=== PATIENT | male | born 1975 | race Caucasian/White ===

== ENCOUNTER 2017-02-15 20:49 | Emergency (ER) | payer OTHER, MEDICARE ==
--- NOTE | 2017-02-15 21:19 | EDM.PDOC ---
ED HPI GENERAL MEDICAL PROBLEM - General Stated Complaint: possible pneumonia Time Seen by Provider: 02/15/17 21:00 Source of Information: Reports: Patient History Limitations: Reports: No Limitations - History of Present Illness INITIAL COMMENTS - FREE TEXT/NARRATIVE: According to patient, he has been having hacky cough for about 2 wks. He feels ticklish in his throat and starts coughing. Cough is intermittent and present all day. No chills. He claims cough has got worse in the past 2 days. Claims he feels feverish. No body aches. No wheezing or SOB. No hoarseness of voice. No chest pain. Duration: Week(s): (2) Severity: Moderate Improves with: Reports: None Worsens with: Reports: None Associated Symptoms: Reports: Cough. Denies: Confusion, Chest Pain, Diaphoresis , Fever/Chills, Headaches, Nausea/Vomiting, Rash, Seizure, Shortness of Breath, Syncope, Weakness - Related Data Allergies Allergy/AdvReac Type Severity Reaction Status Date / Time cyclobenzaprine HCl Allergy Cardiac Verified 11/26/15 12:37 [From Flexeril] Arrest divalproex sodium Allergy Cannot Verified 11/26/15 12:37 [From Depakote] Remember sertraline Allergy Cardiac Verified 11/26/15 12:37 Arrest trazodone Allergy Other Verified 11/26/15 12:37 Home Meds: Home Meds Lisinopril 5 mg PO DAILY 11/26/15 [History] Past Medical History Cardiovascular History: Reports: Hypertension, Prior Cardiac Arrest Respiratory History: Reports: Asthma, Other (See Below) Other Respiratory History: 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 Genitourinary History: Reports: Other (See Below) Other Genitourinary History: testicular cancer Musculoskeletal History: Reports: Back Pain, Chronic, Neck Pain, Chronic Neurological History: Reports: Brain Injury, Migraines Psychiatric History: Reports: Anxiety, Depression, PTSD Oncologic (Cancer) History: Reports: Other (See Below) Other Oncologic History: Testicular Dermatologic History: Reports: Other (See Below) Other Dermatologic History: Rash shoulders after being in [place] - Infectious Disease History Infectious Disease History: Reports: Chicken Pox - Past Surgical History Male Surgical History: Reports: Other (See Below) Neurological Surgical History: Reports: C-Spine, Spinal Fusion Musculoskeletal Surgical History: Reports: Other (See Below) Social & Family History - Family History Family Medical History: Noncontributory - Tobacco Use Smoking Status *Q: Never Smoker Second Hand Smoke Exposure: No - Caffeine Use Caffeine Use: Reports: Coffee - Alcohol Use Days Per Week of Alcohol Use: 3 Number of Drinks Per Day: 3 Total Drinks Per Week: 9 - Recreational Drug Use Recreational Drug Use: No ED ROS GENERAL - Review of Systems Review Of Systems: See Below Constitutional: Denies: Fever, Chills, Fatigue, Night Sweats HEENT: Denies: Ear Discharge, Ear Pain, Rhinitis, Sinus Problem, Throat Pain, Throat Swelling Respiratory: Reports: Cough, Sputum. Denies: Shortness of Breath, Wheezing, Pleuritic Chest Pain Cardiovascular: Denies: Chest Pain, Lightheadedness Endocrine: Denies: Fatigue GI/Abdominal: Denies: Abdominal Pain, Nausea, Vomiting : Denies: Dysuria, Flank Pain Musculoskeletal: Denies: Joint Pain, Joint Swelling Skin: Denies: Pruritis, Rash ED EXAM, GENERAL - Physical Exam Exam: See Below Exam Limited By: No Limitations General Appearance: Alert, WD/WN, No Apparent Distress Eye Exam: Bilateral Eye: EOMI, PERRL Ears: Normal External Exam, Normal Canal, Hearing Grossly Normal, Normal TMs Ear Exam: Bilateral Ear: Auricle Normal, Canal Normal, TM normal Nose: Normal Inspection, Normal Mucosa, No Blood Throat/Mouth: Normal Inspection, Normal Lips, Normal Teeth, Normal Gums, Normal Oropharynx, Normal Voice, No Airway Compromise Head: Atraumatic, Normocephalic Neck: Normal Inspection, Supple, Non-Tender, Full Range of Motion Respiratory/Chest: No Respiratory Distress, Lungs Clear, Normal Breath Sounds, No Accessory Muscle Use, Chest Non-Tender Cardiovascular: Normal Peripheral Pulses, Regular Rate, Rhythm, No Edema, No Gallop, No JVD, No Murmur, No Rub GI/Abdominal: Normal Bowel Sounds, Soft, Non-Tender, No Organomegaly, No Distention, No Abnormal Bruit, No Mass Extremities: Normal Inspection, Normal Range of Motion, Non-Tender, Normal Capillary Refill, No Pedal Edema Skin Exam: Warm, Intact Course - Vital Signs Text/Narrative:: Pt's clinical exam is normal. He does have hacky cough for 2 wks. His SPO2 on room air is 98%. No obvious crepitus or crackles heard. His CbC appears normal. Considering that he has on going cough for 2 wks I have empirically covered him with Augmentin for bronchitis. Advised steam inhalations 2-3 times daily and deep breathing exercises. Followup in clinic for recheck next week. - Orders/Labs/Meds Labs: Laboratory Tests 02/15/17 Range/Units 21:12 WBC 11.0 (4.0-11.0) K/uL RBC 4.50 (4.50-6.50) M/uL Hgb 14.2 (13.0-18.0) g/dL Hct 40.4 (40.0-54.0) % MCV 90 (76-96) fL MCH 31.6 (27.0-32.0) pg MCHC 35.1 H (31.0-35.0) g/dL RDW 11.6 (11.0-16.0) % Plt Count 307 (150-400) K/uL MPV 10.3 H (6.0-10.0) fL Neut % (Auto) 67.4 (45.0-70.0) % Lymph % (Auto) 22.7 (20.0-40.0) % Bledsoe % (Auto) 8.1 (3.0-10.0) % Eos % (Auto) 1.3 (1.0-5.0) % Baso % (Auto) 0.5 (0.0-0.5) % Neut # (Auto) 7.42 (2.00-7.50) K/uL Lymph # (Auto) 2.50 (1.50-4.00) K/uL Bledsoe # (Auto) 0.89 H (0.20-0.80) K/uL Eos # (Auto) 0.14 (0.04-0.40) K/uL Baso # (Auto) 0.05 (0.02-0.10) K/uL Departure - Departure Time of Disposition: 21:30 Disposition: Home, Self-Care 01 Condition: Good Clinical Impression: Acute bacterial bronchitis - Discharge Information Additional Instructions: Pt's clinical exam is normal. He does have hacky cough for 2 wks. His SPO2 on room air is 98%. No obvious crepitus or crackles heard. His CbC and white count appears normal. Considering that he has on going cough for 2 wks I have empirically covered him with Augmentin for bronchitis. Advised steam inhalations 2-3 times daily and deep breathing exercises. Followup in clinic for recheck next week. - Problem List & Annotations (1) Acute bacterial bronchitis SNOMED Code(s): 079739056 Code(s): J20.8 - ACUTE BRONCHITIS DUE TO OTHER SPECIFIED ORGANISMS; B96.89 - OTH BACTERIAL AGENTS THE CAUSE OF DISEASES CLASSD [id number] Status: Acute - Problem List Review Problem List Initiated/Reviewed/Updated: Yes - Assessment/Plan Assessment:: Bronchitis Plan: Pt's clinical exam is normal. He does have hacky cough for 2 wks. His SPO2 on room air is 98%. No obvious crepitus or crackles heard. His CbC appears normal. Considering that he has on going cough for 2 wks I have empirically covered him with Augmentin for bronchitis. Advised steam inhalations 2-3 times daily and deep breathing exercises. Followup in clinic for recheck next week.
[2017-02-15] MEDS ORDERED: Benzonatate 100 MG Cap ONE (21:20)
[2017-02-15] MEDS ORDERED: Amoxicillin/Clavulanate K 875-125 MG Tab ONE (21:20)
== END 2017-02-15 21:35 | disposition home or self-care (01) ==
LOC: LB.ED 20:49
DX: J20.8 Acute bronchitis due to other specified organisms (principal); I10 Essential (primary) hypertension; Z88.8 Allergy status to other drugs, medicaments and biological substances; Z79.899 Other long term (current) drug therapy
CPT/HCPCS: 36415; 85025; 99283; A9270

== ENCOUNTER 2018-04-19 09:11 | Emergency (ER) | payer OTHER, MEDICARE ==
[2018-04-19] MEDS ORDERED: Ketorolac 60 MG/2 ML SDV IM ONE (09:39)
--- NOTE | 2018-04-19 12:05 | CR ---
PA CHEST AND LEFT RIBS, 04/19/18 The heart size is normal. The lungs are clear. No pneumothorax. No pleural effusions. No displaced rib fractures. [id number] [facility]
--- NOTE | 2018-04-19 16:29 | EDM.PDOC ---
ED HPI GENERAL MEDICAL PROBLEM - General Chief Complaint: General Stated Complaint: L) SIDE RIB PAIN Time Seen by Provider: 04/19/18 09:15 Source of Information: Reports: Patient History Limitations: Reports: No Limitations - History of Present Illness INITIAL COMMENTS - FREE TEXT/NARRATIVE: According to patient he has sudden onset of of pain in his left lower chest since friday. Pt claims it happened on Friday when he had a sneezing spell. [place] a sharp pain in the left lower chest and the pain radiates form the back of the chest all the way to midline anteriorly. Hurts to roll in the bed and to take deep breath. Rates pain at 6/10 while resting and 10/10 when he coughs or sneezes. Pt claims he injured his left chest wall in [place] war and since then has had several episodes of similar pain. But, this has been the worst. No cough, wheezing or shortness of breath. Onset Date: 04/15/18 Duration: Getting Worse, Intermittent Location: Reports: Chest Quality: Reports: Ache Severity: Moderate Associated Symptoms: Denies: Confusion, Chest Pain, Cough, Diaphoresis, Fever/ Chills, Headaches, Nausea/Vomiting, Rash, Seizure, Shortness of Breath, Syncope , Weakness - Related Data Allergies Allergy/AdvReac Type Severity Reaction Status Date / Time cyclobenzaprine HCl Allergy Cardiac Verified 11/26/15 12:37 [From Flexeril] Arrest divalproex sodium Allergy Cannot Verified 11/26/15 12:37 [From Depakote] Remember sertraline Allergy Cardiac Verified 11/26/15 12:37 Arrest trazodone Allergy Other Verified 11/26/15 12:37 Home Meds: Home Meds Lisinopril 5 mg PO DAILY 11/26/15 [History] Past Medical History Cardiovascular History: Reports: Hypertension, Prior Cardiac Arrest Respiratory History: Reports: Asthma, Other (See Below) Other Respiratory History: 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 Genitourinary History: Reports: Other (See Below) Other Genitourinary History: testicular cancer Musculoskeletal History: Reports: Back Pain, Chronic, Neck Pain, Chronic Neurological History: Reports: Brain Injury, Migraines Psychiatric History: Reports: Anxiety, Depression, PTSD Oncologic (Cancer) History: Reports: Other (See Below) Other Oncologic History: Testicular Dermatologic History: Reports: Other (See Below) Other Dermatologic History: Rash shoulders after being in [place] - Infectious Disease History Infectious Disease History: Reports: Chicken Pox - Past Surgical History Male Surgical History: Reports: Other (See Below) Neurological Surgical History: Reports: C-Spine, Spinal Fusion Musculoskeletal Surgical History: Reports: Other (See Below) Social & Family History - Family History Family Medical History: Noncontributory - Caffeine Use Caffeine Use: Reports: Coffee ED ROS GENERAL - Review of Systems Review Of Systems: See Below Constitutional: Denies: Fever, Chills HEENT: Denies: Rhinitis, Throat Pain, Throat Swelling Respiratory: Reports: Pleuritic Chest Pain. Denies: Shortness of Breath, Cough , Sputum Cardiovascular: Denies: Chest Pain, Lightheadedness GI/Abdominal: Denies: Abdominal Pain, Nausea, Vomiting : Denies: Flank Pain, Frequency Musculoskeletal: Denies: Joint Pain, Joint Swelling Skin: Denies: Bruising, Pruritis, Rash ED EXAM, GENERAL - Physical Exam Exam: See Below Exam Limited By: No Limitations General Appearance: Alert, WD/WN, No Apparent Distress Eye Exam: Bilateral Eye: EOMI, PERRL Ears: Normal External Exam, Normal Canal, Hearing Grossly Normal, Normal TMs Ear Exam: Bilateral Ear: Auricle Normal, Canal Normal, TM normal Nose: Normal Inspection, Normal Mucosa, No Blood Throat/Mouth: Normal Inspection, Normal Lips, Normal Teeth, Normal Gums, Normal Oropharynx, Normal Voice, No Airway Compromise Head: Atraumatic, Normocephalic Neck: Normal Inspection, Supple, Non-Tender, Full Range of Motion Respiratory/Chest: No Respiratory Distress, Lungs Clear, Normal Breath Sounds, No Accessory Muscle Use, Other (There is no swelling, bruising or deformity of the chest wall.Pain iwth deep breathing. Tender over the left lower chest all the way from left lower costorvertebral joint to costochondral joints.) Cardiovascular: Normal Peripheral Pulses, Regular Rate, Rhythm, No Edema, No Gallop, No JVD, No Murmur, No Rub Course - Vital Signs Text/Narrative:: Pt's left rib series is negative for rib fracture. Pt reassured that he has developed intercostal muscle spasms. He did receive toradol 60mg IM in the emergency room. Advised Motrin 800mg 3 times daily and intermittent heat to the chest wall. Deep breathing exercises. Pain should gradually improve. - Orders/Labs/Meds Meds: Medications Discontinued Medications Generic Name Dose Route Start Last Admin Trade Name Nicholas PRN Reason Stop Dose Admin Ketorolac Tromethamine 60 mg 04/19/18 09:39 04/19/18 09:40 Toradol IM 04/19/18 09:40 60 mg ONETIME ONE Administration Departure - Departure Time of Disposition: 10:00 Disposition: Home, Self-Care 01 Condition: Fair Clinical Impression: Costochondral chest pain - Discharge Information *PRESCRIPTION DRUG MONITORING PROGRAM REVIEWED*: Not Applicable *COPY OF PRESCRIPTION DRUG MONITORING REPORT IN PATIENT ELVIA: Not Applicable Instructions: Costochondritis, [id number] Referrals: PCP,None [Primary Care Provider] - Forms: ED Department Discharge Additional Instructions: Take Motrin 800mg 3 times a day as needed for pain. Warm packs for 10-15 minutes intermitent to site. Return to clinic or ER if symptoms increase or dont improve. - Problem List & Annotations (1) Costochondral chest pain SNOMED Code(s): 436790515, 669834864 Code(s): R07.1 - CHEST PAIN ON BREATHING Status: Acute - Problem List Review Problem List Initiated/Reviewed/Updated: Yes - Assessment/Plan Assessment:: Left costochondral pain Plan: Pt's left rib series is negative for rib fracture. Pt reassured that he has developed intercostal muscle spasms. He did receive toradol 60mg IM in the emergency room. Advised Motrin 800mg 3 times daily and intermittent heat to the chest wall. Deep breathing exercises. Pain should gradually improve. Followup in clinic if symptoms worsen.
== END 2018-04-19 10:18 | disposition home or self-care (01) ==
LOC: LB.ED 09:11
DX: R07.1 Chest pain on breathing (principal); Z88.8 Allergy status to other drugs, medicaments and biological substances; Z88.5 Allergy status to narcotic agent; Z79.899 Other long term (current) drug therapy
CPT/HCPCS: 71100-LT; 96372; 99283-25; J1885

== ENCOUNTER 2019-03-30 12:17 | Emergency (ER) | payer OTHER, MEDICARE ==
[2019-03-30 12:32] VITALS: BP 131/85; PULSE 95
[2019-03-30] MEDS ORDERED: Albuterol/Ipratropium 3.0-0.5 MG/3 ML Neb Soln NEB PRN (13:01)
[2019-03-30] MEDS ORDERED: Albuterol/Ipratropium 3.0-0.5 MG/3 ML Neb Soln ONE (13:25)
--- NOTE | 2019-03-30 14:07 | CR ---
DATE OF SERVICE: 03/30/19 CLINICAL DATA: Cough - pulm fibrosis hx. PA AND LATERAL CHEST: Comparison is made to a prior exam dated 04/19/18. The heart size is normal. The lungs are clear. No pneumothorax. No pleural effusions. No evidence of acute intrathoracic disease. [id number] [facility]
--- NOTE | 2019-03-30 16:55 | ER ---
REASON FOR EMERGENCY ROOM VISIT: Cough. HISTORY: This is a 44-year-old comes in with a 5-day history of cold-like symptoms with a cough over the past couple of days. He has had some wheezing. He has also had increased diaphoresis with possible fever and chills. He has not had any GI symptoms and he denies any headache. The patient's history is significant. 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 This caused him to have pulmonary fibrosis making him prone to episodes of pneumonia and bronchitis, for which he has been seen in the past. PAST MEDICAL HISTORY: 1. Testicular carcinoma at age 23. 2. History of traumatic brain injury in 2013. 3. History of cardiac arrest. 4. Pulmonary fibrosis. 5. PTSD ([place] war ). ALLERGIES: FLEXERIL, SSRI MEDICATIONS INCLUDING SERTRALINE, TRAZODONE, AND DEPAKOTE. MEDICATIONS: Includes lisinopril. REVIEW OF SYSTEMS: Pertinent positives and negatives as listed in the HPI. PHYSICAL EXAMINATION: GENERAL: He is a pleasant man, in no acute distress. VITAL SIGNS: He is afebrile, blood pressure 131/85, heart rate 95, O2 sats 95%, respiratory rate 18. HEENT: Head is normocephalic. TMs are normal. Oropharynx is normal. No conjunctivitis is noted. NECK: Supple. No adenopathy. CHEST: He has scattered wheezes, mainly inspiratory which clears somewhat after coughing. He has a few scattered rhonchi as well. There is reasonably good air exchange nonetheless. CARDIAC: Regular rate without murmur. ABDOMEN: Soft, nontender, nondistended. No hepatosplenomegaly. SKIN: No rashes. LABORATORY DATA: His chest x-ray shows what I felt was a small early infiltrate in the left mid lung field, but this is very subtle. His CBC was within normal limits and his influenza A and B by nasal swab was negative. He does not have any leukocytosis. IMPRESSION: Community-acquired pneumonia clinically. PLAN: We will put him on Augmentin 875 mg one p.o. b.i.d. x10 days. I also gave him a prescription for Tessalon Perles 200 mg, dispensed #20, 1 q.8 hours p.r.n. cough. Other [id number] medications and supportive measures were discussed. He understands that should he not feel significant improvement by the end of the week that he should return for a recheck. All questions were answered. They understand and agreed. ANDRADE /[id number]
== END 2019-03-30 14:03 | disposition home or self-care (01) ==
LOC: LB.ED 12:17
DX: J18.9 Pneumonia, unspecified organism (principal); Z88.8 Allergy status to other drugs, medicaments and biological substances
CPT/HCPCS: 36415; 71046; 85025; 87804; 87804-59; 99283; 99285-25; J7620-GY

== ENCOUNTER 2020-04-07 09:45 | Emergency (ER) | payer MEDICARE, OTHER ==
[2020-04-07 10:05] VITALS: BP 143/103; PULSE 76
--- NOTE | 2020-04-07 10:14 | EDM.PDOC ---
ED HPI GENERAL MEDICAL PROBLEM - General Chief Complaint: ENT Problem Stated Complaint: EAR PAIN Time Seen by Provider: 04/07/20 10:00 Source of Information: Reports: Patient History Limitations: Reports: No Limitations - History of Present Illness INITIAL COMMENTS - FREE TEXT/NARRATIVE: b/l ears pain for 3-7 days. h/o recurrent ears infections in the past. h/o swimmer's ears. No fever or chills. Reports that he is prone to develop a lot of wax inside his ears and they get plugged up occasionally. Have tried to chlorhexidine ear wash solution before but no help. No changes in hearing. Mild nausea but no emesis. Has made an appointment to see his PCP next week - but decided to come to the ER for evaluation - Related Data Allergies Allergy/AdvReac Type Severity Reaction Status Date / Time cyclobenzaprine HCl Allergy Cardiac Verified 04/07/20 09:59 [From Flexeril] Arrest divalproex sodium Allergy Cannot Verified 04/07/20 09:59 [From Depakote] Remember sertraline Allergy Cardiac Verified 04/07/20 09:59 Arrest trazodone Allergy Other Verified 04/07/20 09:59 Past Medical History Cardiovascular History: Reports: Hypertension, Prior Cardiac Arrest Respiratory History: Reports: Asthma, Other (See Below) Other Respiratory History: 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 Genitourinary History: Reports: Other (See Below) Other Genitourinary History: testicular cancer Musculoskeletal History: Reports: Back Pain, Chronic, Neck Pain, Chronic Neurological History: Reports: Brain Injury, Migraines Psychiatric History: Reports: Anxiety, Depression, PTSD Oncologic (Cancer) History: Reports: Other (See Below) Other Oncologic History: Testicular Dermatologic History: Reports: Other (See Below) Other Dermatologic History: Rash shoulders after being in [place] - Infectious Disease History Infectious Disease History: Reports: Chicken Pox - Past Surgical History Male Surgical History: Reports: Other (See Below) Other Male Surgeries/Procedures: testical removal Neurological Surgical History: Reports: C-Spine, Spinal Fusion Musculoskeletal Surgical History: Reports: Other (See Below) Other Musculoskeletal Surgeries/Procedures:: C5-C6 fused Social & Family History - Family History Family Medical History: No Pertinent Family History - Caffeine Use Caffeine Use: Reports: Coffee ED ROS ENT - Review of Systems Review Of Systems: See Below Constitutional: Reports: No Symptoms HEENT: Reports: Ear Pain Respiratory: Reports: No Symptoms Cardiovascular: Reports: No Symptoms GI/Abdominal: Reports: No Symptoms Musculoskeletal: Reports: No Symptoms Skin: Reports: No Symptoms Neurological: Reports: No Symptoms Psychiatric: Reports: No Symptoms ED EXAM, ENT - Physical Exam Exam: See Below Exam Limited By: No Limitations General Appearance: Alert, No Apparent Distress Ears: Normal External Exam, Cerumen Impaction (mild discomfort upon examining the ear with an otoscope. cerumenosis. Unable to visualize), Other Head: Atraumatic Neck: Normal Inspection, Full Range of Motion Respiratory/Chest: No Respiratory Distress, Lungs Clear GI/Abdominal: Normal Bowel Sounds Neurological: Alert, Oriented, No Motor/Sensory Deficits Psychiatric: Normal Affect Course - Vital Signs Last Recorded V/S: Last Vital Signs Temp 36.3 C 04/07/20 10:03 Pulse 76 04/07/20 10:03 Resp 16 04/07/20 10:03 BP 143/103 H 04/07/20 10:03 Pulse Ox 97 04/07/20 10:03 - Re-Assessments/Exams Free Text/Narrative Re-Assessment/Exam: patient reports that he responded well to ciprofloxacin last time he had the same thing. Departure - Departure Time of Disposition: 10:00 Disposition: Home, Self-Care 01 Condition: Good Clinical Impression: Otitis externa - Discharge Information *PRESCRIPTION DRUG MONITORING PROGRAM REVIEWED*: Not Applicable *COPY OF PRESCRIPTION DRUG MONITORING REPORT IN PATIENT ELVIA: Not Applicable Instructions: Ciprofloxacin tablets Referrals: Sid Sanchez MD [Primary Care Provider] - Forms: ED Department Discharge Care Plan Goals: Can use tylenol and alternate with ibuprofen as needed as directed by physician. Take cipro 2 x day x 5 days as directed. zofran ODT 4 mg every 6 to 8 hrs as directed. Keep appointment with Dr. Sanchez. Continue using OTC drops if you want. Sepsis Event Note (ED) - Focused Exam Vital Signs: Vital Signs Temp Pulse Resp BP Pulse Ox 04/07/20 10:03 36.3 C 76 16 143/103 H 97 - Problem List & Annotations (1) Otitis externa SNOMED Code(s): 0331394 Code(s): H60.90 - UNSPECIFIED OTITIS EXTERNA, UNSPECIFIED EAR Status: Acute Priority: Medium Current Visit: Yes Qualifiers: Otitis externa type: swimmer's ear Chronicity: chronic Laterality: bilateral Qualified Code(s): H60.333 - Swimmer's ear, bilateral - Problem List Review Problem List Initiated/Reviewed/Updated: Yes - Assessment/Plan Plan: Cipro PO 500mg BID for 5 days Zofran for nausea f/u w PCP in 3-7 days Tylenol for pain as needed
== END 2020-04-07 10:15 | disposition home or self-care (01) ==
LOC: LB.ED 09:45
DX: H60.93 Unspecified otitis externa, bilateral (principal); I10 Essential (primary) hypertension; H61.20 Impacted cerumen, unspecified ear; J45.909 Unspecified asthma, uncomplicated; Z88.8 Allergy status to other drugs, medicaments and biological substances; Z88.5 Allergy status to narcotic agent
CPT/HCPCS: 99282; 99283

== ENCOUNTER 2020-08-30 12:31 | Observation (INO) | payer OTHER ==
--- NOTE | 2020-08-30 12:38 | EDM.PDOC ---
ED HPI GENERAL MEDICAL PROBLEM - General Chief Complaint: Back Pain or Injury Stated Complaint: BACK PAIN Time Seen by Provider: 08/30/20 12:38 Source of Information: Reports: Patient History Limitations: Reports: No Limitations - History of Present Illness INITIAL COMMENTS - FREE TEXT/NARRATIVE: patient presented to the ER with a c/o acute low back pain. h/o chronic neck and back pain, s/o fusion of cervical spine. Reports that he was trying to carry something not that have and while twisting, he developed a severe low back pain, mainly to the left - unable to put weight on the affected side. No numbness or tingling. Required helped to get up and get to the ER. pain 9 out of 10. h.o anxiety. Onset: Sudden Duration: Minutes: (15) Location: Reports: Back Quality: Reports: Sharp Severity: Moderate Improves with: Reports: Immobilization Worsens with: Reports: Movement Left Lower Back Pain Score (Numeric/FACES): 9 - Related Data Allergies Allergy/AdvReac Type Severity Reaction Status Date / Time cyclobenzaprine HCl Allergy Cardiac Verified 08/30/20 13:05 [From Flexeril] Arrest divalproex sodium Allergy Cannot Verified 08/30/20 13:05 [From Depakote] Remember sertraline Allergy Cardiac Verified 08/30/20 13:05 Arrest trazodone Allergy Other Verified 08/30/20 13:05 Home Meds: Home Meds diazePAM [Valium] 5 mg PO ASDIRECTED 08/30/20 [History] hydrOXYzine HCL [Atarax] 25 mg PO ASDIRECTED 08/30/20 [History] methocarbamoL [Methocarbamol] 100 mg IJ ASDIRECTED 08/30/20 [History] Past Medical History HEENT History: Reports: Other (See Below) Other HEENT History: hx ear infections in the past from swimming etc. 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 Genitourinary History: Reports: Other (See Below) Other Genitourinary History: testicular cancer Musculoskeletal History: Reports: Back Pain, Chronic, Neck Pain, Chronic Neurological History: Reports: Brain Injury, Migraines Psychiatric History: Reports: Anxiety, Depression, PTSD Oncologic (Cancer) History: Reports: Other (See Below) Other Oncologic History: Testicular Dermatologic History: Reports: Other (See Below) Other Dermatologic History: Rash shoulders after being in [place] - Infectious Disease History Infectious Disease History: Reports: Chicken Pox - Past Surgical History Male Surgical History: Reports: Other (See Below) Other Male Surgeries/Procedures: testical removal Neurological Surgical History: Reports: C-Spine, Spinal Fusion Musculoskeletal Surgical History: Reports: Other (See Below) Other Musculoskeletal Surgeries/Procedures:: C5-C6 fused Social & Family History - Family History Family Medical History: No Pertinent Family History - Caffeine Use Caffeine Use: Reports: Coffee ED ROS GENERAL - Review of Systems Review Of Systems: See Below Constitutional: Reports: No Symptoms HEENT: Reports: No Symptoms Respiratory: Reports: No Symptoms Cardiovascular: Reports: No Symptoms GI/Abdominal: Reports: No Symptoms Musculoskeletal: Reports: Back Pain Skin: Reports: No Symptoms Neurological: Reports: No Symptoms ED EXAM,LOWER BACK PAIN/INJURY - Physical Exam Exam: See Below Exam Limited By: No Limitations General Appearance: Alert, WD/WN, No Apparent Distress Eye Exam: Bilateral Eye: EOMI Head: Atraumatic, Normocephalic Respiratory/Chest: No Respiratory Distress, Lungs Clear Cardiovascular: Normal Peripheral Pulses, Regular Rate, Rhythm Back Exam: Decreased Range of Motion, Muscle Spasm Neurological: Alert, Normal Mood/Affect, Abnormal Gait Course - Vital Signs Last Recorded V/S: Last Vital Signs Temp 36.1 C 08/30/20 12:35 Pulse 61 08/30/20 12:35 Resp 18 08/30/20 12:35 BP 139/91 H 08/30/20 12:35 Pulse Ox 98 08/30/20 12:35 - Orders/Labs/Meds Orders: Active Orders 24 hr Category Date Time Status Sodium Chloride 0.9% [Saline Flush] Med 08/30/20 16:42 Active 10 ml FLUSH ASDIRECTED PRN Saline Lock Insert [OM.PC] Routine Oth 08/30/20 16:42 Ordered Medication Orders Sodium Chloride (Sodium Chloride 0.9% 10 Ml Syringe) 10 ml FLUSH ASDIRECTED PRN PRN Reason: Keep Vein Open Meds: Medications Generic Name Dose Route Start Last Admin Trade Name Freq PRN Reason Stop Dose Admin Sodium Chloride 10 ml 08/30/20 16:42 Sodium Chloride 0.9% 10 Ml Syringe FLUSH ASDIRECTED PRN Keep Vein Open Discontinued Medications Generic Name Dose Route Start Last Admin Trade Name Nicholas PRN Reason Stop Dose Admin Diazepam 5 mg 08/30/20 15:49 Diazepam 5 Mg/Ml Mdv IM 08/30/20 15:50 ONETIME ONE Diazepam 5 mg 08/30/20 15:51 Diazepam 5 Mg/Ml Mdv IM 08/30/20 15:52 ONETIME ONE Diazepam Confirm 08/30/20 16:03 Diazepam 5 Mg/Ml Mdv Administered 08/30/20 16:04 Dose 5 mg .ROUTE .STK-MED ONE Fentanyl 50 mcg 08/30/20 14:20 08/30/20 14:28 Fentanyl 100 Mcg/2 Ml Sdv IM 08/30/20 14:21 50 mcg ONETIME ONE Administration Fentanyl Confirm 08/30/20 14:32 08/30/20 14:31 Fentanyl 100 Mcg/2 Ml Sdv Administered 08/30/20 14:33 Not Given Dose 100 mcg .ROUTE .STK-MED ONE Fentanyl 50 mcg 08/30/20 16:42 Fentanyl 100 Mcg/2 Ml Sdv IVPUSH 08/30/20 16:43 NOW STA Ketorolac Tromethamine 60 mg 08/30/20 12:48 08/30/20 12:58 Ketorolac 60 Mg/2 Ml Sdv IM 08/30/20 12:49 60 mg ONETIME ONE Administration Ketorolac Tromethamine Confirm 08/30/20 13:03 08/30/20 13:20 Ketorolac 60 Mg/2 Ml Sdv Administered 08/30/20 13:04 Not Given Dose 60 mg .ROUTE .STK-MED ONE Ketorolac Tromethamine Confirm 08/30/20 13:04 08/30/20 13:21 Ketorolac 60 Mg/2 Ml Sdv Administered 08/30/20 13:05 Not Given Dose 60 mg .ROUTE .STK-MED ONE Methylprednisolone Sodium Succinate 125 mg 08/30/20 12:48 08/30/20 13:00 Methylprednisolone Sodium Succinate 125 Mg/2 Ml Sdv IM 08/30/20 12:49 125 mg ONETIME ONE Administration Methylprednisolone Sodium Succinate Confirm 08/30/20 13:03 08/30/20 13:20 Methylprednisolone Sodium Succinate 125 Mg/2 Ml Sdv Administered 08/30/20 13:04 Not Given Dose 125 mg .ROUTE .STK-MED ONE Ondansetron HCl 4 mg 08/30/20 13:15 08/30/20 13:19 Ondansetron 4 Mg Tab.Dis PO 08/30/20 13:16 4 mg ONETIME ONE Administration Ondansetron HCl Confirm 08/30/20 13:28 08/30/20 14:31 Ondansetron 4 Mg Tab.Dis Administered 08/30/20 13:29 Not Given Dose 4 mg .ROUTE .STK-MED ONE Orphenadrine Citrate 60 mg 08/30/20 13:23 08/30/20 13:40 Orphenadrine 60 Mg/2 Ml Inj IM 08/30/20 13:24 60 mg ONETIME ONE Administration Orphenadrine Citrate 60 mg 08/30/20 13:35 Orphenadrine 60 Mg/2 Ml Inj IM 08/30/20 13:36 ONETIME ONE Orphenadrine Citrate Confirm 08/30/20 13:47 08/30/20 14:30 Orphenadrine 60 Mg/2 Ml Inj Administered 08/30/20 13:48 Not Given Dose 60 mg .ROUTE .STK-MED ONE - Re-Assessments/Exams Free Text/Narrative Re-Assessment/Exam: patient is unable to get up in his own -- severe muscle spas, was given IM toradol 60mg and IM norflex 60mg - pain still 9 out of 10 IM solumedrol 125mg - no improvement Fentanyl 50 mcg IM - pain slightly improved down to 8 CT lumbar spine was done - showed mild/moderate disc bulge L3-L4 and L4-L5, with mild central canal stenosis. Valium 5mg IM was given - pain slightly improved to 7, but still unable to get up and pain shoots up to 10 when he tried to move. no incontinence or tingling. Given the severity of pain and inadequate response to multiple doses of IM benzo and opioids - decision to admit the patient to floor/observation for pain control. Departure - Departure Time of Disposition: 16:47 Disposition: Refer to Observation Condition: Fair Clinical Impression: Muscle spasms of neck Acute bilateral low back pain with sciatica Qualifiers: Sciatica laterality: bilateral sciatica Qualified Code(s): M54.42 - Lumbago with sciatica, left side; M54.41 - Lumbago with sciatica, right side - Discharge Information *PRESCRIPTION DRUG MONITORING PROGRAM REVIEWED*: Not Applicable *COPY OF PRESCRIPTION DRUG MONITORING REPORT IN PATIENT ELVIA: Not Applicable Referrals: Sid Sanchez MD [Primary Care Provider] - Forms: ED Department Discharge Sepsis Event Note (ED) - Focused Exam Vital Signs: Vital Signs Temp Pulse Resp BP Pulse Ox 08/30/20 12:35 36.1 C 61 18 139/91 H 98 - Problem List & Annotations (1) Muscle spasms of neck SNOMED Code(s): 748319682473 Code(s): M62.838 - OTHER MUSCLE SPASM Status: Acute Priority: Medium Current Visit: Yes Onset Date: 03/19/15 Annotation/Comment:: 03/19/15 - Neck and back pain with spasms (2) Back spasm SNOMED Code(s): 618808767 Code(s): M62.830 - MUSCLE SPASM OF BACK Status: Acute Priority: Medium Current Visit: Yes Onset Date: 03/19/15 Annotation/Comment:: 03/19/15 - Neck and back pain with spasms (3) Acute bilateral low back pain with sciatica SNOMED Code(s): 366208156, 115798037, 028843128 Code(s): M54.40 - LUMBAGO WITH SCIATICA, UNSPECIFIED SIDE Status: Acute Priority: Medium Current Visit: Yes Qualifiers: Sciatica laterality: bilateral sciatica Qualified Code(s): M54.42 - Lumbago with sciatica, left side; M54.41 - Lumbago with sciatica, right side - Problem List Review Problem List Initiated/Reviewed/Updated: Yes - My Orders Last 24 Hours: My Active Orders 08/30/20 16:42 Sodium Chloride 0.9% [Saline Flush] 10 ml FLUSH ASDIRECTED PRN Saline Lock Insert [OM.PC] Routine - Assessment/Plan Last 24 Hours: My Active Orders 08/30/20 16:42 Sodium Chloride 0.9% [Saline Flush] 10 ml FLUSH ASDIRECTED PRN Saline Lock Insert [OM.PC] Routine Plan: - admit to observation - IV line - NSAIDs and fentanyl PRN - heating pads - Lidocaine patch locally
[2020-08-30] MEDS ORDERED: Ketorolac 60 MG/2 ML SDV IM ONE (12:48)
[2020-08-30] MEDS ORDERED: methylPREDNISolone Sodium Succinate 125 MG/2 ML SDV IM ONE (12:48)
[2020-08-30] MEDS ORDERED: Ketorolac 60 MG/2 ML SDV ONE ×2 (13:03→13:04)
[2020-08-30] MEDS ORDERED: methylPREDNISolone Sodium Succinate 125 MG/2 ML SDV ONE (13:03)
[2020-08-30] MEDS ORDERED: Ondansetron 4 MG Tab.DIS PO ONE (13:15)
[2020-08-30] MEDS ORDERED: Orphenadrine 60 MG/2 ML Inj IM ONE ×2 (13:23→13:35)
[2020-08-30] MEDS ORDERED: Ondansetron 4 MG Tab.DIS ONE (13:28)
[2020-08-30] MEDS ORDERED: Orphenadrine 60 MG/2 ML Inj ONE (13:47)
[2020-08-30] MEDS ORDERED: fentaNYL 100 MCG/2 ML SDV IM ONE (14:20)
[2020-08-30] MEDS ORDERED: fentaNYL 100 MCG/2 ML SDV ONE ×2 (14:32→19:16)
--- NOTE | 2020-08-30 15:19 | CT ---
DATE OF SERVICE: 08/30/20 CLINICAL DATA: SEVERE PAIN Lumbar spine CT: Multi slice axial acquisition from T12-S3 was performed. Axial images and sagittal coronal reformations are reviewed. No priors. The the vertebral bodies are of average height . No acute fracture or dislocation. There is very slight retrolisthesis of L4 on L5. There is mild annular bulging of the L3-L4 disc. There is mild facet joint and ligamentum flavum hypertrophy at this level. Mild central spinal stenosis and mild neural foramen stenosis bilaterally. There is annular bulging of the L4-L5 disc. There is mild facet joint and ligamentum flavum hypertrophy at this level. Mild central spinal stenosis and mild neural foramen stenosis bilaterally. No other disc abnormalities. No extruded or protruding disc. No other significant findings. No lytic or blastic bone lesions. MTDD
[2020-08-30] MEDS ORDERED: diazePAM 5 MG/ML MDV IM ONE ×2 (15:49→15:51)
[2020-08-30] MEDS ORDERED: diazePAM 5 MG/ML MDV ONE (16:03)
[2020-08-30] MEDS ORDERED: fentaNYL 100 MCG/2 ML SDV IVPUSH STA (16:42)
[2020-08-30] MEDS ORDERED: Ketorolac 30 MG/ML SDV IVPUSH PRN (16:50)
[2020-08-30] MEDS ORDERED: Morphine PF 30 MG/30 ML PCA Vial IV PRN (16:51)
[2020-08-30] MEDS ORDERED: Naloxone 2 MG/2 ML Syringe IVPUSH PRN (16:51)
[2020-08-30] MEDS ORDERED: diphenhydrAMINE 25 MG Cap PO PRN (16:51)
[2020-08-30] MEDS ORDERED: diphenhydrAMINE 50 MG/ML SDV IVPUSH PRN (16:51)
[2020-08-30] MEDS ORDERED: Lidocaine 5% 700 MG Patch TOP SCH (17:00)
[2020-08-30] MEDS ORDERED: Morphine 10 MG/ML SDV ONE ×2 (18:03→23:23)
[2020-08-30] MEDS: Morphine 5 MG/ML SDV IVPUSH PRN ×2 (18:27→23:27)
[2020-08-30 18:33] LABS: CORONAVIRUS COVID-19 NAA NEGATIVE (NEGATIVE)
[2020-08-30] MEDS: Sodium Chloride 0.9% 10 ML Syringe FLUSH PRN ×3 (19:24→23:31)
[2020-08-30] MEDS: Ondansetron 4 MG/2 ML SDV IVPUSH PRN (19:49)
[2020-08-30] MEDS: Acetaminophen 325 MG Tab PO PRN (21:05)
[2020-08-31] MEDS: Acetaminophen 325 MG Tab PO PRN (02:00)
[2020-08-31] MEDS: Ondansetron 4 MG/2 ML SDV IVPUSH PRN (02:01)
[2020-08-31 08:20] VITALS: BP 125/80; PULSE 60
[2020-08-31] MEDS ORDERED: Morphine 10 MG/ML SDV IVPUSH PRN (08:45)
--- NOTE | 2020-08-31 09:57 | PCM.DCSUM1 ---
Discharge Summary - Hospital Course Brief History: patient was admitted to the ER due to flare up of back pain. h/o chronic neck and back pain. s/p cervical fusion. was lifting a heavy objecy at home, and felt snapping sudden onset of left lower back pain. pain 10 out of 10. unable to get up on his own - requiring assistance. no incontinence or numbness. Diagnosis: Stroke: No - Discharge Data Discharge Date: 08/31/20 Discharge Disposition: Home, Self-Care 01 Condition: Good - Referral to Home Health Primary Care Physician: Sid Sanchez MD - Discharge Diagnosis/Problem(s) (1) Muscle spasms of neck SNOMED Code(s): 547954199648 ICD Code: M62.838 - OTHER MUSCLE SPASM Status: Acute Priority: Medium Current Visit: Yes Onset Date: 03/19/15 Problem Details: 03/19/15 - Neck and back pain with spasms (2) Back spasm SNOMED Code(s): 983543712 ICD Code: M62.830 - MUSCLE SPASM OF BACK Status: Acute Priority: Medium Current Visit: Yes Onset Date: 03/19/15 Problem Details: 03/19/15 - Neck and back pain with spasms (3) Acute bilateral low back pain with sciatica SNOMED Code(s): 791204312, 172763425, 425485425 ICD Code: M54.40 - LUMBAGO WITH SCIATICA, UNSPECIFIED SIDE Status: Acute Priority: Medium Current Visit: Yes Qualifiers: Sciatica laterality: bilateral sciatica Qualified Code(s): M54.42 - Lumbago with sciatica, left side; M54.41 - Lumbago with sciatica, right side - Patient Summary/Data Hospital Course: required multiple IM/Iv doses of narcotics and benzodiazepine to control his pain. CT lumbar spine showed multiple degenerative disc protrusion/mild in lumbar L3- L4 and L4-L5 area with mild central canal stenosis. was admitted to the floor for control of back pain - IV morphine, Lidocaine patch and Valium. The following day - patient reported significant improvement in pain level - down to 5. able to get easier than before, still hard, but better. would like to be d/cd home. has a f/u appointment with PCP in 10 days. - Patient Instructions Diet: Regular Diet as Tolerated Activity: As Tolerated Driving: Do Not Drive - Discharge Plan *PRESCRIPTION DRUG MONITORING PROGRAM REVIEWED*: Not Applicable *COPY OF PRESCRIPTION DRUG MONITORING REPORT IN PATIENT ELVIA: Not Applicable Prescriptions/Med Rec: Lidocaine 5% [Lidoderm 5%] 1 patch TOP DAILY #14 patch Orphenadrine [Norflex] 100 mg PO BID PRN #30 tab PRN Reason: Muscle Spasm - Painful diazePAM [Valium] 5 mg PO BID PRN #14 tablet PRN Reason: Muscle Spasm - Painful Home Medications: Home Meds Albuterol [Proventil HFA] 2 puff INH Q4H PRN 08/30/20 [History] RX: methocarbamoL [Methocarbamol] 100 mg IJ ASDIRECTED 08/30/20 [History] diazePAM [Valium] 5 mg PO ASDIRECTED 08/30/20 [History] hydrOXYzine HCL [Atarax] 25 mg PO ASDIRECTED 08/30/20 [History] Lidocaine 5% [Lidoderm 5%] 1 patch TOP DAILY #14 patch 08/31/20 [Rx] Orphenadrine [Norflex] 100 mg PO BID PRN #30 tab 08/31/20 [Rx] diazePAM [Valium] 5 mg PO BID PRN #14 tablet 08/31/20 [Rx] Patient Handouts: Muscle Cramps and Spasms, [id number], Sciatica, [id number], Spasticity Forms: ED Department Discharge Referrals: Sid Sanchez MD [Primary Care Provider] - - Discharge Summary/Plan Comment DC Time >30 min.: No - General Info Functional Status: Reports: Pain Controlled, Tolerating Diet - Review of Systems General: Reports: No Symptoms HEENT: Reports: No Symptoms Pulmonary: Reports: No Symptoms Cardiovascular: Reports: No Symptoms Gastrointestinal: Reports: No Symptoms Skin: Reports: No Symptoms Neurological: Reports: No Symptoms Psychiatric: Reports: No Symptoms - Patient Data Vitals - Most Recent: Last Vital Signs Temp 36.6 C 08/31/20 08:00 Pulse 60 08/31/20 08:00 Resp 16 08/31/20 08:00 BP 125/80 08/31/20 08:00 Pulse Ox 97 08/31/20 08:00 Weight - Most Recent: 108.862 kg Lab Results - Last 24 hrs: Laboratory Results - last 24 hr 08/30/20 Range/Units 17:49 SARS-CoV-2 RNA (SKINNY) Negative (NEGATIVE) Med Orders - Current: Current Medications Acetaminophen (Acetaminophen 325 Mg Tab) 650 mg PO Q4H PRN PRN Reason: analgesia/fever Last Admin: 08/31/20 02:00 Dose: 650 mg Documented by: Diphenhydramine HCl (Diphenhydramine 50 Mg/Ml Sdv) 25 mg IVPUSH Q6H PRN PRN Reason: Itching Diphenhydramine HCl (Diphenhydramine 25 Mg Cap) 25 mg PO Q6H PRN PRN Reason: Itching Ketorolac Tromethamine (Ketorolac 30 Mg/Ml Sdv) 30 mg IVPUSH Q8H PRN PRN Reason: Pain (moderate 4-6) Stop: 09/04/20 16:50 Last Admin: 08/30/20 21:08 Dose: 30 mg Documented by: Lidocaine (Lidocaine 5% 700 Mg Patch) 700 mg TOP Q24H JOSE MARTIN Last Admin: 08/30/20 20:57 Dose: 700 mg Documented by: Morphine Sulfate (Morphine 10 Mg/Ml Sdv) 5 mg IVPUSH Q4HR PRN PRN Reason: PAIN CONTROL Naloxone HCl (Naloxone 2 Mg/2 Ml Syringe) 0.04 mg IVPUSH Q3M PRN PRN Reason: Respiratory Depression Ondansetron HCl (Ondansetron 4 Mg/2 Ml Sdv) 4 mg IVPUSH Q6H PRN PRN Reason: Nausea/Vomiting Last Admin: 08/31/20 02:01 Dose: 4 mg Documented by: Sodium Chloride (Sodium Chloride 0.9% 10 Ml Syringe) 10 ml FLUSH ASDIRECTED PRN PRN Reason: Keep Vein Open Last Admin: 08/30/20 23:31 Dose: 10 ml Documented by: Discontinued Medications Diazepam (Diazepam 5 Mg/Ml Mdv) 5 mg IM ONETIME ONE Stop: 08/30/20 15:50 Last Admin: 08/30/20 18:59 Dose: Not Given Documented by: Diazepam (Diazepam 5 Mg/Ml Mdv) 5 mg IM ONETIME ONE Stop: 08/30/20 15:52 Last Admin: 08/30/20 17:35 Dose: 5 mg Documented by: Diazepam (Diazepam 5 Mg/Ml Mdv) Confirm Administered Dose 5 mg .ROUTE .STK-MED ONE Stop: 08/30/20 16:04 Last Admin: 08/30/20 17:35 Dose: Not Given Documented by: Fentanyl (Fentanyl 100 Mcg/2 Ml Sdv) 50 mcg IM ONETIME ONE Stop: 08/30/20 14:21 Last Admin: 08/30/20 14:28 Dose: 50 mcg Documented by: Fentanyl (Fentanyl 100 Mcg/2 Ml Sdv) Confirm Administered Dose 100 mcg .ROUTE .STK-MED ONE Stop: 08/30/20 14:33 Last Admin: 08/30/20 14:31 Dose: Not Given Documented by: Fentanyl (Fentanyl 100 Mcg/2 Ml Sdv) 50 mcg IVPUSH NOW STA Stop: 08/30/20 16:43 Last Admin: 08/30/20 19:24 Dose: 50 mcg Documented by: Fentanyl (Fentanyl 100 Mcg/2 Ml Sdv) Confirm Administered Dose 100 mcg .ROUTE .STK-MED ONE Stop: 08/30/20 19:17 Last Admin: 08/30/20 19:54 Dose: Not Given Documented by: Ketorolac Tromethamine (Ketorolac 60 Mg/2 Ml Sdv) 60 mg IM ONETIME ONE Stop: 08/30/20 12:49 Last Admin: 08/30/20 12:58 Dose: 60 mg Documented by: Ketorolac Tromethamine (Ketorolac 60 Mg/2 Ml Sdv) Confirm Administered Dose 60 mg .ROUTE .STK-MED ONE Stop: 08/30/20 13:04 Last Admin: 08/30/20 13:20 Dose: Not Given Documented by: Ketorolac Tromethamine (Ketorolac 60 Mg/2 Ml Sdv) Confirm Administered Dose 60 mg .ROUTE .STK-MED ONE Stop: 08/30/20 13:05 Last Admin: 08/30/20 13:21 Dose: Not Given Documented by: Methylprednisolone Sodium Succinate (Methylprednisolone Sodium Succinate 125 Mg/2 Ml Sdv) 125 mg IM ONETIME ONE Stop: 08/30/20 12:49 Last Admin: 08/30/20 13:00 Dose: 125 mg Documented by: Methylprednisolone Sodium Succinate (Methylprednisolone Sodium Succinate 125 Mg/2 Ml Sdv) Confirm Administered Dose 125 mg .ROUTE .STK-MED ONE Stop: 08/30/20 13:04 Last Admin: 08/30/20 13:20 Dose: Not Given Documented by: Morphine Sulfate (Morphine Pf 30 Mg/30 Ml Cloth Folder Machine Vial) 0 mg IV ASDIRECTED PRN; Protocol PRN Reason: Pain Morphine Sulfate (Morphine 5 Mg/Ml Sdv) 5 mg IVPUSH Q4HR PRN PRN Reason: Pain (moderate 4-6) Last Admin: 08/30/20 23:27 Dose: 5 mg Documented by: Morphine Sulfate (Morphine 10 Mg/Ml Sdv) Confirm Administered Dose 10 mg .ROUTE .STK-MED ONE Stop: 08/30/20 18:04 Last Admin: 08/30/20 18:47 Dose: Not Given Documented by: Morphine Sulfate (Morphine 10 Mg/Ml Sdv) Confirm Administered Dose 10 mg .ROUTE .STK-MED ONE Stop: 08/30/20 23:24 Last Admin: 08/30/20 23:30 Dose: Not Given Documented by: Ondansetron HCl (Ondansetron 4 Mg Tab.Dis) 4 mg PO ONETIME ONE Stop: 08/30/20 13:16 Last Admin: 08/30/20 13:19 Dose: 4 mg Documented by: Ondansetron HCl (Ondansetron 4 Mg Tab.Dis) Confirm Administered Dose 4 mg .ROUTE .STK-MED ONE Stop: 08/30/20 13:29 Last Admin: 08/30/20 14:31 Dose: Not Given Documented by: Orphenadrine Citrate (Orphenadrine 60 Mg/2 Ml Inj) 60 mg IM ONETIME ONE Stop: 08/30/20 13:24 Last Admin: 08/30/20 13:40 Dose: 60 mg Documented by: Orphenadrine Citrate (Orphenadrine 60 Mg/2 Ml Inj) 60 mg IM ONETIME ONE Stop: 08/30/20 13:36 Last Admin: 08/30/20 18:58 Dose: Not Given Documented by: Orphenadrine Citrate (Orphenadrine 60 Mg/2 Ml Inj) Confirm Administered Dose 60 mg .ROUTE .STK-MED ONE Stop: 08/30/20 13:48 Last Admin: 08/30/20 14:30 Dose: Not Given Documented by: - Exam General: Reports: Alert, Oriented HEENT: Reports: Pupils Equal Lungs: Reports: Clear to Auscultation, Normal Respiratory Effort Cardiovascular: Reports: Regular Rate GI/Abdominal Exam: Normal Bowel Sounds, Soft, Non-Tender Back Exam: Reports: Decreased Range of Motion, Muscle Spasm Extremities: Normal Inspection, Normal Range of Motion Psy/Mental Status: Reports: Alert, Normal Affect, Normal Mood
== END 2020-08-31 11:05 | disposition home or self-care (01) ==
LOC: LB.ED 12:31 → LB.MS 16:49
PROVIDERS: ADMIT Surgery; ATTEND Surgery
DX: M54.42 Lumbago with sciatica, left side (principal); M54.41 Lumbago with sciatica, right side; M62.838 Other muscle spasm; M62.830 Muscle spasm of back; I10 Essential (primary) hypertension; J45.909 Unspecified asthma, uncomplicated; Z98.1 Arthrodesis status; Z79.899 Other long term (current) drug therapy; Z88.8 Allergy status to other drugs, medicaments and biological substances; Z20.822 Contact with and (suspected) exposure to COVID-19
CPT/HCPCS: 72131; 96372; 99284-25; A9270-GY; J1885; J2270; J2360; J2405; J2930; J3010; J3360; U0002

== ENCOUNTER 2022-11-10 13:45 | Emergency (ER) | payer OTHER, MEDICARE ==
[2022-11-10] MEDS: methylPREDNISolone Sodium Succinate 125 MG/2 ML SDV IM ONE (14:28)
[2022-11-10] MEDS ORDERED: predniSONE 10 MG Tab ONE (15:00)
[2022-11-10 15:47] VITALS: BP 126/87; PULSE 63
== END 2022-11-10 15:05 | disposition home or self-care (01) ==
LOC: LB.ED 13:45
DX: L23.7 Allergic contact dermatitis due to plants, except food (principal); I10 Essential (primary) hypertension; J45.909 Unspecified asthma, uncomplicated; Z79.899 Other long term (current) drug therapy; Z88.8 Allergy status to other drugs, medicaments and biological substances; Z88.5 Allergy status to narcotic agent
CPT/HCPCS: 96372; 99282; J2930; J7512